=== PATIENT | female | born 1940 | race Caucasian/White ===

== ENCOUNTER 2016-07-13 02:45 | Emergency (ER) | payer MEDICARE ==
[2016-07-13 03:14] VITALS: BP 157/79
[2016-07-13] MEDS ORDERED: CEPHALEXIN 500 MG CAPSULE PO ONE (03:25)
--- NOTE | 2016-07-13 03:28 | ER Document Report ---
HPI - HPI Patient complains to provider of: finger pain Onset: Other - 4 days Onset/Duration: Sudden Quality of pain: Achy Severity: Moderate Pain Level: 3 Context: Patient presents emergency department with complaints of left middle finger pain. Patient reports 4 days ago she had a superficial cut. She does not remember what she cut herself on. Recently she picked at it with a needle. Tonight she woke up hurting. She has not taken anything for the pain. She denies other symptoms such as fever vomiting diarrhea. Associated Symptoms: None Exacerbated by: Denies Relieved by: Denies Similar symptoms previously: No Recently seen / treated by doctor: No - REPRODUCTIVE LMP: na - DERM Skin Color: Normal Past Medical History - General Information source: Patient - Social History Smoking Status: Unknown if Ever Smoked Cigarette use (# per day): No Frequency of alcohol use: None Drug Abuse: None Lives with: Spouse/Significant other Family History: None Patient has suicidal ideation: No Patient has homicidal ideation: No - Past Medical History Cardiac Medical History: Reports: Hx Hypertension Renal/ Medical History: Denies: Hx Peritoneal Dialysis Past Surgical History: Reports: Hx Hysterectomy Vertical Provider Document - CONSTITUTIONAL Agree With Documented VS: Yes Exam Limitations: No Limitations General Appearance: WD/WN, No Apparent Distress - INFECTION CONTROL TRAVEL OUTSIDE OF THE [place] IN LAST 30 DAYS: No - HEENT HEENT: Atraumatic, Normocephalic - NECK Neck: Normal Inspection, Supple. negative: Lymphadenopathy-Left, Lymphadenopathy-Right - RESPIRATORY Respiratory: Breath Sounds Normal, No Respiratory Distress O2 Sat by Pulse Oximetry: 96 - CARDIOVASCULAR Cardiovascular: Regular Rate - MUSCULOSKELETAL/EXTREMETIES Musculoskeletal/Extremeties: MAEW, FROM, Tender - erythema and slight swelling to left 3rd digit, no induration,no pustule, brisk cap refill, pip palmar area with area pt has picked at with needle, dorsal finger with slight swelling, no pustule - NEURO Level of Consciousness: Awake, Alert, Appropriate Motor/Sensory: No Motor Deficit - DERM Integumentary: Warm, Dry Course - Re-evaluation Re-evalutation: 07/13/16 03:38 Patient instructed to monitor the finger return to the emergency department for increased swelling pain. Patient primary care is [facility]. She was instructed to follow up with primary care provider for recheck. - Vital Signs Vital signs: Temp Pulse Resp BP Pulse Ox 98.5 F 69 18 157/79 H 96 07/13/16 03:10 07/13/16 03:10 07/13/16 03:10 07/13/16 03:10 07/13/16 03:10 Discharge - Discharge Clinical Impression: Finger pain, left Condition: Stable Disposition: HOME, SELF-CARE Instructions: Soap Cleansing ([facility]), Cephalexin ([facility]), Anti-Inflammatory Medication ([facility]) Additional Instructions: *You have been treated for finger pain *Take medication as prescribed *Monitor the site for signs of increasing infection such as increasing pain, redness, swelling, warmth *Keep the finger clean *Take antiinflammatory for pain such as aleve or ibuprofen *Follow up with a primary care provider within 5 days *Return to ED for signs of increasing infection, worsening condition, changes, needs Prescriptions: Cephalexin Monohydrate [Keflex 500 mg Capsule] 500 mg PO QID #20 capsule Forms: Elevated Blood Pressure
== END 2016-07-13 03:54 | disposition home or self-care (01) ==
LOC: ER 02:45
DX: M79.645 Pain in left finger(s) (principal); L53.9 Erythematous condition, unspecified; M79.89 Other specified soft tissue disorders; I10 Essential (primary) hypertension
CPT/HCPCS: 99282; A9270

== ENCOUNTER 2016-08-13 09:46 | Day surgery (SDC) | payer MEDICARE ==
[~2016-08-13 09:46] MED LIST: KETOROLAC TROMETHAMINE 0.45% 4 DROP/0.4 ML DROPERETTE OS PRN; LIDOCAINE 1% INJ-PF (10 MG/ML) 30 ML SDV ONE; MIDAZOLAM 2 MG/2 ML INJ ONE
[2016-08-13] MEDS: CYCLOPENTOLATE 0.2%/PHENYLEPHRINE 1% OPH SOLN 2 ML OS PRN ×3 (10:19→10:36)
[2016-08-13] MEDS: BESIFLOXACIN HCL 0.6% OPH SUSP 5 ML BOTTLE OS PRN ×4 (10:19→11:19)
[2016-08-13] MEDS: TETRACAINE HCL 0.5% OPH SOLN 0.6 ML DROPERETTE OS PRN ×3 (10:19→10:43)
[2016-08-13] MEDS: TROPICAMIDE 1% OPH SOLN 3 ML OS PRN ×3 (10:19→10:36)
[2016-08-13] MEDS: CHONDR SU A NA/HYALUR INTRAOC KIT (SURGICARE) ONE ×2 (11:07)
[2016-08-13] MEDS: EPINEPHRINE INJ/PF 1 MG/1 ML AMPULE ONE ×2 (11:07)
[2016-08-13] MEDS: TOBRAMYCIN SULFATE/DEXAMETH OPH OINTMENT 3.5 GM ONE ×2 (11:19)
== END 2016-08-13 12:01 | disposition home or self-care (01) ==
LOC: SC 09:46
PROVIDERS: ATTEND Ophthalmology
PROC: 08RK3JZ Replacement of Left Lens with Synthetic Substitute, Percutaneous Approach (ICD-10-PCS; principal; 2016-08-13 10:45)
DX: H25.12 Age-related nuclear cataract, left eye (principal); I10 Essential (primary) hypertension; K21.9 Gastro-esophageal reflux disease without esophagitis; Z79.899 Other long term (current) drug therapy; Z79.82 Long term (current) use of aspirin; Z87.891 Personal history of nicotine dependence; Z88.5 Allergy status to narcotic agent
CPT/HCPCS: 66984; V2787; J2250; J3490 ×3; A9270; J0171; 142

== ENCOUNTER 2016-08-27 08:02 | Day surgery (SDC) | payer MEDICARE ==
[~2016-08-27 08:02] MED LIST changes: +CHONDR SU A NA/HYALUR INTRAOC KIT (SURGICARE) ONE; +EPINEPHRINE INJ/PF 1 MG/1 ML AMPULE ONE; +KETOROLAC TROMETHAMINE 0.45% 4 DROP/0.4 ML DROPERETTE OD PRN; -KETOROLAC TROMETHAMINE 0.45% 4 DROP/0.4 ML DROPERETTE OS PRN; -MIDAZOLAM 2 MG/2 ML INJ ONE; +TOBRAMYCIN SULFATE/DEXAMETH OPH OINTMENT 3.5 GM ONE
[2016-08-27] MEDS: CYCLOPENTOLATE 0.2%/PHENYLEPHRINE 1% OPH SOLN 2 ML OD PRN ×3 (08:21→08:48)
[2016-08-27] MEDS: TROPICAMIDE 1% OPH SOLN 3 ML OD PRN ×3 (08:22→08:49)
[2016-08-27] MEDS: BESIFLOXACIN HCL 0.6% OPH SUSP 5 ML BOTTLE OD PRN ×2 (08:23→08:37)
[2016-08-27] MEDS: TETRACAINE HCL 0.5% OPH SOLN 0.6 ML DROPERETTE OD PRN ×3 (08:25→08:56)
[2016-08-27] MEDS ORDERED: MIDAZOLAM 2 MG/2 ML INJ ONE (08:40)
== END 2016-08-27 09:57 | disposition home or self-care (01) ==
LOC: SC 08:02
PROVIDERS: ATTEND Ophthalmology
DX: H25.11 Age-related nuclear cataract, right eye (principal); Z53.9 Procedure and treatment not carried out, unspecified reason; Z96.1 Presence of intraocular lens; I10 Essential (primary) hypertension; K21.9 Gastro-esophageal reflux disease without esophagitis; Z79.82 Long term (current) use of aspirin; Z87.891 Personal history of nicotine dependence
CPT/HCPCS: J2250; J3490 ×3; A9270; J0171

== ENCOUNTER 2016-09-03 10:28 | Day surgery (SDC) | payer MEDICARE ==
[2016-09-03] MEDS: CYCLOPENTOLATE 0.2%/PHENYLEPHRINE 1% OPH SOLN 2 ML OD PRN ×3 (10:52→11:12)
[2016-09-03] MEDS: BESIFLOXACIN HCL 0.6% OPH SUSP 5 ML BOTTLE OD PRN ×3 (10:52→11:48)
[2016-09-03] MEDS: TROPICAMIDE 1% OPH SOLN 3 ML OD PRN ×3 (10:52→11:12)
[2016-09-03] MEDS: TETRACAINE HCL 0.5% OPH SOLN 0.6 ML DROPERETTE OD PRN ×3 (10:53→11:25)
[2016-09-03] MEDS ORDERED: MIDAZOLAM 2 MG/2 ML INJ ONE (11:19)
[2016-09-03] MEDS ORDERED: FENTANYL CITRATE INJ/PF 100 MCG/2 ML AMPUL ONE (11:19)
== END 2016-09-03 12:36 | disposition home or self-care (01) ==
LOC: SC 10:28
PROVIDERS: ATTEND Ophthalmology
PROC: 08RJ3JZ Replacement of Right Lens with Synthetic Substitute, Percutaneous Approach (ICD-10-PCS; principal; 2016-09-03 11:30)
DX: H25.11 Age-related nuclear cataract, right eye (principal); Z96.1 Presence of intraocular lens; I10 Essential (primary) hypertension; K21.9 Gastro-esophageal reflux disease without esophagitis; Z79.82 Long term (current) use of aspirin; Z79.899 Other long term (current) drug therapy; Z87.891 Personal history of nicotine dependence; Z88.5 Allergy status to narcotic agent
CPT/HCPCS: 66984; V2787; J2250; J3490 ×3; A9270; J0171; J3010; 142

== ENCOUNTER 2017-02-20 08:34 | Day surgery (SDC) | payer MEDICARE ==
[2017-02-20] MEDS ORDERED: PROMETHAZINE HCL INJ 25 MG/1 ML VIAL IV PRN (11:14)
[2017-02-20] MEDS ORDERED: FENTANYL CITRATE INJ/PF 100 MCG/2 ML AMPUL IV PRN (11:14)
[2017-02-20] MEDS ORDERED: PROPOFOL INJ 200 MG/20 ML VIAL IV ONE (11:46)
--- NOTE | 2017-02-20 12:34 | Operative Report ---
Operative Report DATE OF SURGERY: 02/20/17 Operative Report: The risks, benefits and alternatives of the procedure including risks of bleeding, perforation requiring surgery are explained to the patient in detail and informed consent is obtained. Patient is taken back to the operating room and placed in the left, lateral decubital position. A timeout was called. Propofol medications administered. A rectal examination was done which did not reveal any masses, tears or fissures. An Olympus videoscope was inserted into the patient's rectum. The scope was then carefully advanced all the way to the cecum. The cecum was identified by the usual anatomical landmarks including the ileocecal valve as well as appendiceal office. Photodocumentation is obtained. Prep is good. The scope was then sequentially pulled back via the various segments of the colon including the ascending colon, hepatic flexure, transverse colon, splenic flexure, descending colon finding to the rectosigmoid portions of the colon. Retroflexion maneuvers performed. PREOPERATIVE DIAGNOSIS: Blood in stool. POSTOPERATIVE DIAGNOSIS: Ascending colon polypremoved via snare polypectomy. Random right-sided colon biopsies rule out lymphocytic, microscopic, collagenous colitis. Diverticulosis. Internal hemorrhoids OPERATION: Colonoscopy with snare polypectomy. Colonoscopy with biopsy SURGEON: DEBRA SHRESTHA ANESTHESIA: LMAC TISSUE REMOVED OR ALTERED: As noted above. COMPLICATIONS: None. ESTIMATED BLOOD LOSS: None. INTRAOPERATIVE FINDINGS: As noted above. PROCEDURE: Patient tolerated procedure well. No immediate postprocedure complications are noted. Patient discharged in good condition. Discharge date 02/20/2017. Discharge diet: Regular. Discharge activity: Regular. 2-3 week follow-up to discuss findings. Patient is instructed to call the office or proceed to the emergency room should there be any further problems or questions. We will await pathology. 3-5 year surveillance colonoscopy.
[2017-02-20 14:51] VITALS: BP 144/77
== END 2017-02-20 14:15 | disposition home or self-care (01) ==
LOC: END 08:34
PROVIDERS: ATTEND Internal Medicine Gastroenterology
PROC: 0DBK8ZX Excision of Ascending Colon, Via Natural or Artificial Opening Endoscopic, Diagnostic (ICD-10-PCS; principal; 2017-02-20 10:30)
PROC: 0DBE8ZX Excision of Large Intestine, Via Natural or Artificial Opening Endoscopic, Diagnostic (ICD-10-PCS; 2017-02-20 10:30)
DX: D12.2 Benign neoplasm of ascending colon (principal); K52.9 Noninfective gastroenteritis and colitis, unspecified; K57.30 Diverticulosis of large intestine without perforation or abscess without bleeding; K64.8 Other hemorrhoids; K92.1 Melena; I10 Essential (primary) hypertension; R00.1 Bradycardia, unspecified; K21.9 Gastro-esophageal reflux disease without esophagitis; Z79.899 Other long term (current) drug therapy; Z79.82 Long term (current) use of aspirin; Z88.5 Allergy status to narcotic agent
CPT/HCPCS: 45380; 45385; 88305 ×2; J2704; 810

== ENCOUNTER 2017-09-17 12:24 | Day surgery (SDC) | payer MEDICARE, OTHER ==
[2017-09-17] MEDS ORDERED: NALOXONE HCL INJ/PF 0.4 MG/1 ML SDV ONE (12:58)
[2017-09-17] MEDS ORDERED: ONDANSETRON HCL INJ/PF 4 MG/2 ML SDV ONE (12:58)
[2017-09-17] MEDS ORDERED: MIDAZOLAM 2 MG/2 ML INJ ONE (12:58)
[2017-09-17] MEDS ORDERED: DIPHENHYDRAMINE HCL 50 MG/ML VIAL ONE (12:58)
[2017-09-17] MEDS ORDERED: FLUMAZENIL INJ 0.5 MG/5 ML VIAL ONE (12:59)
[2017-09-17] MEDS ORDERED: GLUCAGON,HUMAN RECOMB 1 MG INJ ONE (12:59)
[2017-09-17] MEDS ORDERED: EPINEPHRINE INJ 1 MG/10 ML DISP.SYRIN ONE (12:59)
[2017-09-17] MEDS: FENTANYL CITRATE INJ/PF 100 MCG/2 ML AMPUL ONE ×2 (13:11→13:15)
--- NOTE | 2017-09-17 13:24 | Operative Report ---
Operative Report DATE OF SURGERY: 09/17/17 Operative Report: The risks benefits and alternatives of the procedure explained to the patient in detail and informed consent is obtained.A GIF Olympus video scope was inserted into the patient's mouth and hypopharynx, the esophagus is identified intubated and insufflated, the scope was then advanced through the esophagus stomach and duodenum, retroflexion maneuver is done ,the esophagus stomach and first and second portions of the duodenum examined PREOPERATIVE DIAGNOSIS: Epigastric pain, gastroesophageal reflux disease POSTOPERATIVE DIAGNOSIS: Mid esophageal lesion that is more consistent with Power's status post biopsy. Gastritis status post biopsy rule out Helicobacter pylori OPERATION: EGD with biopsy SURGEON: DEBRA SHRESTHA ANESTHESIA: Moderate Sedation - 2 mg of Versed, 75 mcg of fentanyl. Conscious sedation monitoring time 30 minutes. TISSUE REMOVED OR ALTERED: As noted above. COMPLICATIONS: None. ESTIMATED BLOOD LOSS: None. INTRAOPERATIVE FINDINGS: As noted above. PROCEDURE: Patient tolerated the procedure well. No immediate postprocedure complications are noted. Patient discharged in good condition. Discharge date 09/17/2017. Discharge diet: Regular. Discharge activity: Regular. 2-3 week follow-up to discuss findings. Patient is instructed call the office or proceed to the emergency room should there be any further problems or questions. We will be on the pathology. If biopsies are positive may need ablation but will speak to the patient before that.
[2017-09-17 14:22] VITALS: BP 126/67
== END 2017-09-17 14:20 | disposition home or self-care (01) ==
LOC: END 12:24
PROVIDERS: ATTEND Internal Medicine Gastroenterology
DX: K21.0 Gastro-esophageal reflux disease with esophagitis (principal); K29.50 Unspecified chronic gastritis without bleeding; I10 Essential (primary) hypertension; Z79.899 Other long term (current) drug therapy; Z88.5 Allergy status to narcotic agent
CPT/HCPCS: 43239; 88305 ×2; J2250; J3010; J0171; J1200; J1610; J2310; J2405; J3490

== ENCOUNTER 2017-09-29 11:50 | Day surgery (SDC) | payer MEDICARE, OTHER ==
[2017-09-29] MEDS ORDERED: DIPHENHYDRAMINE HCL 50 MG/ML VIAL ONE (12:20)
[2017-09-29] MEDS ORDERED: ONDANSETRON HCL INJ/PF 4 MG/2 ML SDV ONE (12:20)
[2017-09-29] MEDS ORDERED: NALOXONE HCL INJ/PF 0.4 MG/1 ML SDV ONE (12:20)
[2017-09-29] MEDS ORDERED: GLUCAGON,HUMAN RECOMB 1 MG INJ ONE (12:21)
[2017-09-29] MEDS ORDERED: EPINEPHRINE INJ 1 MG/10 ML DISP.SYRIN ONE (12:21)
[2017-09-29] MEDS ORDERED: FLUMAZENIL INJ 0.5 MG/5 ML VIAL ONE (12:21)
[2017-09-29] MEDS: MIDAZOLAM 2 MG/2 ML INJ ONE ×2 (12:42→12:46)
[2017-09-29] MEDS: FENTANYL CITRATE INJ/PF 100 MCG/2 ML AMPUL ONE ×2 (12:44→12:48)
--- NOTE | 2017-09-29 13:01 | Operative Report ---
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 Conscious sedation monitoring time 30 minutes. TISSUE REMOVED OR ALTERED: None. COMPLICATIONS: None. ESTIMATED BLOOD LOSS: None. INTRAOPERATIVE FINDINGS: As noted above. PROCEDURE: Patient tolerated the procedure well. No immediate postprocedure complications are noted. Patient discharged in good condition. Discharge date 09/29/2017. Discharge diet: Regular. Discharge activity: Regular. 2-3 week follow-up to discuss findings. Patient is instructed to call the office or proceed to the emergency room should there be any further problems or questions.
[2017-09-29 13:54] VITALS: BP 117/68
== END 2017-09-29 14:20 | disposition home or self-care (01) ==
LOC: END 11:50
PROVIDERS: ATTEND Internal Medicine Gastroenterology
DX: K22.719 Barrett's esophagus with dysplasia, unspecified (principal); I10 Essential (primary) hypertension; K21.9 Gastro-esophageal reflux disease without esophagitis; R00.1 Bradycardia, unspecified; F41.9 Anxiety disorder, unspecified; Z13.89 Encounter for screening for other disorder; Z88.5 Allergy status to narcotic agent; Z79.899 Other long term (current) drug therapy; Z79.82 Long term (current) use of aspirin
CPT/HCPCS: 43270; J2250; J3010; J0171; J1200; J1610; J2310; J2405; J3490

== ENCOUNTER 2018-12-01 08:05 | Day surgery (SDC) | payer MEDICARE, OTHER ==
[~2018-12-01 08:05] MED LIST changes: -CHONDR SU A NA/HYALUR INTRAOC KIT (SURGICARE) ONE; +DIPHENHYDRAMINE HCL 50 MG/ML VIAL ONE; +EPINEPHRINE INJ 1 MG/10 ML DISP.SYRIN ONE; -EPINEPHRINE INJ/PF 1 MG/1 ML AMPULE ONE; +FLUMAZENIL INJ 0.5 MG/5 ML VIAL ONE; +GLUCAGON,HUMAN RECOMB 1 MG INJ ONE; -KETOROLAC TROMETHAMINE 0.45% 4 DROP/0.4 ML DROPERETTE OD PRN; -LIDOCAINE 1% INJ-PF (10 MG/ML) 30 ML SDV ONE; +NALOXONE HCL INJ/PF 0.4 MG/1 ML SDV ONE; +ONDANSETRON HCL INJ/PF 4 MG/2 ML SDV ONE; -TOBRAMYCIN SULFATE/DEXAMETH OPH OINTMENT 3.5 GM ONE
[2018-12-01] MEDS: MIDAZOLAM 2 MG/2 ML INJ ONE ×3 (08:25→08:30)
[2018-12-01] MEDS: FENTANYL CITRATE INJ/PF 100 MCG/2 ML AMPUL ONE ×2 (08:27→08:28)
--- NOTE | 2018-12-01 08:42 | Operative Report ---
Operative Report DATE OF SURGERY: 12/01/18 Operative Report: The risks benefits and alternatives of the procedure explained to the patient in detail and informed consent is obtained.A GIF Olympus video scope was inserted into the patient's mouth and hypopharynx, the esophagus is identified intubated and insufflated, the scope was then advanced through the esophagus stomach and duodenum, retroflexion maneuver is done, the esophagus stomach and first and second portions of the duodenum examined. PREOPERATIVE DIAGNOSIS: History of Power's esophagus, gastroesophageal reflux disease POSTOPERATIVE DIAGNOSIS: Power's esophagus status post radiofrequency ablation. Hiatal hernia. Gastritis status post biopsy without Helicobacter pylori OPERATION: EGD with biopsy. EGD with radiofrequency ablation SURGEON: DEBRA SHRESTHA ANESTHESIA: Moderate Sedation - 4 mg of Versed, 50 mcg of fentanyl. Conscious sedation monitoring time 30 minutes. TISSUE REMOVED OR ALTERED: As noted above. COMPLICATIONS: None. ESTIMATED BLOOD LOSS: None. INTRAOPERATIVE FINDINGS: As noted above. PROCEDURE: Patient tolerated the procedure well. No immediate postprocedure complications are noted. Patient is discharged in good condition. Discharge date 12/01/2018. Discharge diet: Regular. Discharge activity: Regular. 2 to 3-week follow-up to discuss findings. Patient is instructed to call the office or proceed to the emergency room should there be any further problems or questions. Wait on the pathology.
[2018-12-01 09:44] VITALS: BP 116/60
== END 2018-12-01 09:45 | disposition home or self-care (01) ==
LOC: END 08:05
PROVIDERS: ATTEND Internal Medicine Gastroenterology
DX: K21.9 Gastro-esophageal reflux disease without esophagitis (principal); K44.9 Diaphragmatic hernia without obstruction or gangrene; K29.50 Unspecified chronic gastritis without bleeding; K22.70 Barrett's esophagus without dysplasia; I10 Essential (primary) hypertension; R00.1 Bradycardia, unspecified; Z79.82 Long term (current) use of aspirin
CPT/HCPCS: 43270; 43239; 88305 ×2; J2250; J3010; J0171; J1200; J1610; J2310; J2405; J3490

== ENCOUNTER 2019-07-03 05:35 | Emergency (ER) | payer MEDICARE, OTHER ==
[2019-07-03] MEDS ORDERED: NORMAL SALINE 250 ML IV ONE (06:33)
--- NOTE | 2019-07-03 07:27 | RADIOLOGY REPORT (SQ) ---
EXAM: XR Abdomen, 1 View EXAM DATE/TIME: 07/03/2019 7:11 AM CLINICAL HISTORY: The patient is 79 years old and is Female; abdominal pain ruq TECHNIQUE: Frontal supine view of the abdomen/pelvis. COMPARISON: No relevant prior studies available. FINDINGS: GASTROINTESTINAL TRACT: Moderate amount of stool in the colon. No obvious bowel obstruction. BONES/JOINTS: Degenerative changes of the lower lumbar spine. SOFT TISSUES: Unremarkable as visualized. IMPRESSION: No acute findings.
[2019-07-03 07:57] LABS: ABSOLUTE LYMPHOCYTES (AUTO) 0.6 10^3/uL (0.5-4.7); ABSOLUTE MONOCYTES (AUTO) 0.6 10^3/uL (0.1-1.4); ABSOLUTE NEUT (AUTO) 6.9 10^3/uL (1.7-8.2); BASOPHILS % (AUTO) 0.5 % (0-2); EOSINOPHILS % (AUTO) 0.5 % (0-6); HEMOGLOBIN 14.8 g/dL (12.0-15.5); LYMPHOCYTES % (AUTO) 7.2 % (13-45); MEAN CORPUSCULAR HEMOGLOBIN 30.6 pg (27.0-33.4); MEAN CORPUSCULAR HGB CONC 35.1 g/dL (32.0-36.0); MEAN CORPUSCULAR VOLUME 87 fl (80-97); PLATELET COUNT 178 10^3/uL (150-450); RED BLOOD COUNT 4.82 10^6/uL (3.72-5.28); RED CELL DISTRIBUTION WIDTH 13.1 % (11.5-14.0); SEGMENTED NEUTROPHILS % (AUTO) 84.8 % (42-78); TOTAL CELLS COUNTED % (AUTO) 100 %; WHITE BLOOD COUNT 8.1 10^3/uL (4.0-10.5)
[2019-07-03 08:16] LABS: ALBUMIN 4.1 g/dL (3.5-5.0); ALKALINE PHOSPHATASE 64 U/L (38-126); ASPARTATE AMINO TRANSFERASE 35 U/L (14-36); BILIRUBIN,TOTAL 1.3 mg/dL (0.2-1.3); BLOOD UREA NITROGEN 18 mg/dL (7-20); GLUCOSE 99 mg/dL (75-110); POTASSIUM 4.6 mmol/L (3.6-5.0); TOTAL PROTEIN 6.9 g/dL (6.3-8.2)
[2019-07-03 08:27] LABS: CARBON DIOXIDE 31 mmol/L (22-30); CHLORIDE 102 mmol/L (98-107)
[2019-07-03 08:30] LABS: ANION GAP 6 (5-19)
--- NOTE | 2019-07-03 08:54 | EKG REPORT ---
SEVERITY:- ABNORMAL ECG - SINUS RHYTHM LEFT AXIS DEVIATION NONSPECIFIC ST-T CHANGES LATERAL LEADS : Confirmed by: Philip Cardozo MD 03-Jul-2019 08:53:51
[2019-07-03 09:04] LABS: APPEARANCE,URINE CLEAR; BILIRUBIN,URINE NEGATIVE (NEGATIVE); COLOR,URINE YELLOW; GLUCOSE, URINE NEGATIVE (NEGATIVE); KETONES,URINE NEGATIVE (NEGATIVE); LEUKOCYTE ESTERASE,URINE NEGATIVE (NEGATIVE); NITRITE,URINE NEGATIVE (NEGATIVE); PROTEIN,URINE NEGATIVE (NEGATIVE); URINE SPECIFIC GRAVITY 1.008; UROBILINOGEN,URINE NEGATIVE mg/dL (<2.0)
--- NOTE | 2019-07-03 09:34 | ER Document Report ---
Entered by PO GALINDO SCRIBE 07/03/19 0630 Acting as scribe for:SRIKANTH GONZALEZ MD ED General - General Chief Complaint: Abdominal Pain Stated Complaint: ABDOMINAL PAIN Time Seen by Provider: 07/03/19 06:13 Primary Care Provider: INOCENTE ANTUNEZ MD [Primary Care Provider] - Follow up as needed Information source: Patient Notes: This 79-year-old female presents to the emergency department via EMS complaining of RUQ abdominal pain that began about 4 hours ago. Patient describes that when she went to sleep, she felt normal. Patient was awoken at 2AM stating that she "felt gas in her stomach". Patient said that this is a normal symptom for her but after awhile a pain began in her RUQ that she described as dull and aching. Patient said that she had a bowel movement with no relief of symptoms. Patient stated that the pain was worsening with associated diaphoresis and a feeling of passing out. Patient stated that she got nervous and when she pressed on her RUQ it felt sore. Patient called EMS and said that when she was picked up by EMS, she vomited once. Patient has had no sick contact. Patient states that she has never felt this pain before but she feels better now. Patient denies mouth swelling, trouble swallowing, chest pain and wheezing. TRAVEL OUTSIDE OF THE [place] IN LAST 30 DAYS: No - Related Data Allergies/Adverse Reactions: codeine Adverse Reaction (Verified 12/01/18 08:03) shakey, nervous diphenhydramine [From Benadryl] Adverse Reaction (Verified 12/01/18 08:03) Hyperactive, shakey, nervous oxycodone [From Percocet] Adverse Reaction (Verified 12/01/18 08:03) hallucination Home Medications: Amlodipine, Vitamin C, Omeprazole, Estratest Past Medical History - General Information source: Patient - Social History Smoking Status: Former Smoker Cigarette use (# per day): No Chew tobacco use (# tins/day): No Lives with: Parents Family History: None Patient has suicidal ideation: No Patient has homicidal ideation: No - Past Medical History Cardiac Medical History: Reports: Hx Hypertension GI Medical History: Reports: Hx Gastroesophageal Reflux Disease, Hx Hiatal Hernia Musculoskeletal Medical History: Reports Hx Arthritis Psychiatric Medical History: Reports: Hx Anxiety Past Surgical History: Reports: Hx Section, Hx Hysterectomy - Immunizations Hx Diphtheria, Pertussis, Tetanus Vaccination: Yes Hx Pneumococcal Vaccination: 02/04/17 Review of Systems - Review of Systems Constitutional: See HPI, Diaphoresis EENT: See HPI. denies: Difficulty swallowing, Mouth swelling Cardiovascular: See HPI. denies: Chest pain Respiratory: See HPI. denies: Wheezing Gastrointestinal: See HPI, Abdominal pain, Vomiting, Last bowel movement Genitourinary: No symptoms reported Female Genitourinary: No symptoms reported Musculoskeletal: No symptoms reported Skin: No symptoms reported Hematologic/Lymphatic: No symptoms reported Neurological/Psychological: No symptoms reported -: Yes All other systems reviewed and negative Physical Exam - Vital signs Vitals: Temp Pulse Resp BP Pulse Ox 97.4 F 64 14 128/62 H 94 07/03/19 05:50 07/03/19 05:50 07/03/19 05:50 07/03/19 05:50 07/03/19 05:50 - Notes Notes: Physical Exam: General: Alert, appears well. HEENT: Normocephalic. Atraumatic. PERRL. Extraocular movements intact. Oropharynx clear. TMs are clear and non-bulging, bilaterally. Neck: Supple. Non-tender. Respiratory: No respiratory distress. Clear and equal breath sounds bilaterally. Cardiovascular: Regular rate and rhythm. Abdominal: Non-tender. No distension. Hyperactive Bowel Sounds. Back: No gross abnormalities. Extremities: Moves all four extremities. Upper extremities: Normal inspection. Normal ROM. Lower extremities: Normal inspection. No edema. Normal ROM. Neurological: Normal cognition. AAOx4. Normal speech. Psychological: Normal affect. Normal Mood. Skin: Warm. Dry. Normal color. Course - Re-evaluation Re-evalutation: 07/03/19 09:30 Patient resting comfortably. Patient reports again that she has not had any pain since she has been in the emergency department. Her pain improved once EMS arrived to her residence and have given her Zofran and Benadryl prior to arrival to the ED. - Vital Signs Vital signs: Temp Pulse Resp BP Pulse Ox 97.4 F 64 14 128/62 H 94 07/03/19 05:50 07/03/19 05:50 07/03/19 05:50 07/03/19 05:50 07/03/19 05:50 - Laboratory Result Diagrams: 07/03/19 07:25 07/03/19 07:25 Laboratory results interpreted by me: 07/03/19 07/03/19 07:25 07:25 Lymph % (Auto) 7.2 L Seg Neutrophils % 84.8 H Carbon Dioxide 31 H Patient has a carbon dioxide of 31 and 84% segs. With a normal white count. Patient does not appear to have any infectious disease going on at this time. And patient has been given a bolus of 250 milliliters of normal saline. - Diagnostic Test Radiology reviewed: Image reviewed, Reports reviewed Radiology results interpreted by me: 07/03/19 07:50 Abdominal KUB single view radiology report shows moderate amount of stool no obstruction noted. Degenerative changes in the lumbar spine otherwise negative. - EKG Interpretation by Me Additional EKG results interpreted by me: 07/03/19 06:52 Twelve-lead EKG done 07/03/2019 at 648 shows sinus bradycardia rate of 59 left axis deviation. No other acute ST-T wave changes. Discharge - Discharge Clinical Impression: Constipation by delayed colonic transit Condition: Stable Disposition: HOME, SELF-CARE Instructions: Abdominal Pain ([facility]) Additional Instructions: Constipation Constipation is a common problem. It is especially likely as you get older. Constipation is a common cause of abdominal pain, but sometimes causes no symptoms at all. Causes of constipation include certain medications, dehydration, diets, inactivity, and low-fiber intake. Rarely, it can be a symptom of underlying disease. The physician has evaluated you for this. Avoid constipation by eating a diet high in fiber, fruits, and vegetables. Drink plenty of liquids. Get regular exercise. If possible, avoid constipating medicines like narcotic pain medication. Some vitamin tablets can cause constipation. Stool softeners may be needed for difficult cases. An excellent stool softener is Konsyl which is available at [employer], and [employer]. Just add a teaspoon to a glass of pineapple or orange juice daily or twice a day if needed. Laxatives are useful for occasional constipation. You should use them only when necessary. Too-frequent use can make your bowels dependent on them. Some over the counter laxatives available without prescription are: Milk of Magnesia, 1-2 tablespoons twice a day Dulcolax, 5 mg pill or 10 mg suppository. Citrate of Magnesia, 4-5 ounces a day for a day or two For acute constipation, Fleet's Enemas and Dulcolax suppositories are helpful. Chronic, retirement use of laxatives or enemas is not a good idea. Your bowel may become dependant on them. You do not need to have a bowel movement every day. Many people do fine with a bowel movement every three or four days. You should call your doctor or return for re-evaluation if you pass blood in the stool, or if you develop fever or increasing abdominal pain. Prescriptions: Magnesium Citrate [Citrate of Magnesia 296 ml Bottle] 296 ml PO DAILY #1 bottle Referrals: INOCENTE ANTUNEZ MD [Primary Care Provider] - Follow up as needed I personally performed the services described in the documentation, reviewed and edited the documentation which was dictated to the scribe in my presence, and it accurately records my words and actions.
[2019-07-03 09:43] VITALS: BP 124/66
== END 2019-07-03 10:57 | disposition home or self-care (01) ==
LOC: ER 05:35
DX: K59.01 Slow transit constipation (principal); R10.11 Right upper quadrant pain; R61 Generalized hyperhidrosis; R11.10 Vomiting, unspecified; R00.1 Bradycardia, unspecified; I10 Essential (primary) hypertension; K21.9 Gastro-esophageal reflux disease without esophagitis; Z79.899 Other long term (current) drug therapy
CPT/HCPCS: 93005; 99284; 36415; 83605; 83690; 85025; 80053; 81001; 84484; 74018; 93010; J7050

== ENCOUNTER 2020-02-01 08:05 | Day surgery (SDC) | payer MEDICARE, OTHER ==
[~2020-02-01 08:05] MED LIST changes: -DIPHENHYDRAMINE HCL 50 MG/ML VIAL ONE; -EPINEPHRINE INJ 1 MG/10 ML DISP.SYRIN ONE; -FLUMAZENIL INJ 0.5 MG/5 ML VIAL ONE; -GLUCAGON,HUMAN RECOMB 1 MG INJ ONE; -NALOXONE HCL INJ/PF 0.4 MG/1 ML SDV ONE; -ONDANSETRON HCL INJ/PF 4 MG/2 ML SDV ONE; +PROPOFOL INJ 200 MG/20 ML VIAL IV ONE
[2020-02-01 11:32] VITALS: BP 142/73
--- NOTE | 2020-02-01 11:56 | Operative Report ---
Operative Report DATE OF SURGERY: 02/01/20 Operative Report: The risk, benefits and alternatives of the procedure including the risks of bleeding, perforation requiring surgery have been explained to the patient in detail and informed consent has been obtained. Patient is placed in left lateral decubital position. Timeout was called. Propofol medication is administered. Rectal examination is done which did not reveal any masses, tears or fissures. An Olympus videoscope was introduced into the patient's rectum. Scope was then carefully advanced all the way to the cecum. Cecum was identified by the usual anatomical landmarks including the ileocecal valve as well as the appendiceal office. Photodocumentation is obtained. Scope was then sequentially pulled back via the various segments of the colon including the ascending colon, hepatic flexure, transverse colon, splenic flexure, descending colon finding to the rectosigmoid portions of the colon. Retroflexion maneuver is performed. PREOPERATIVE DIAGNOSIS: Change of bowel habits. Family history of colorectal cancer POSTOPERATIVE DIAGNOSIS: Moderate sigmoid diverticulosis. Internal hemorrhoids. Mild inflammation noted on the right-hand side of the colon status post biopsy OPERATION: Colonoscopy with biopsy SURGEON: DEBRA SHRESTHA ANESTHESIA: LMAC TISSUE REMOVED OR ALTERED: As noted above. COMPLICATIONS: None. ESTIMATED BLOOD LOSS: None. INTRAOPERATIVE FINDINGS: As noted above. PROCEDURE: Patient tolerated the procedure well. No immediate postprocedure complications are noted. Patient is discharged in good condition. Discharge date 02/01/2020. Discharge diet: Regular. Discharge activity: Regular. 2 to 3-week follow-up to discuss findings. 5-year surveillance colonoscopy due to the family history of colorectal cancer Wait on the pathology. No evidence of diverticulitis.
== END 2020-02-01 11:45 | disposition home or self-care (01) ==
LOC: END 08:05
PROVIDERS: ATTEND Internal Medicine Gastroenterology
DX: K57.30 Diverticulosis of large intestine without perforation or abscess without bleeding (principal); K63.89 Other specified diseases of intestine; K52.9 Noninfective gastroenteritis and colitis, unspecified; K64.8 Other hemorrhoids; K21.9 Gastro-esophageal reflux disease without esophagitis; Z80.0 Family history of malignant neoplasm of digestive organs; I10 Essential (primary) hypertension; D64.9 Anemia, unspecified; R19.4 Change in bowel habit; M48.00 Spinal stenosis, site unspecified; R51.9 Headache, unspecified; R63.4 Abnormal weight loss; Z87.891 Personal history of nicotine dependence; Z79.899 Other long term (current) drug therapy; Z68.23 Body mass index [BMI] 23.0-23.9, adult; Z88.6 Allergy status to analgesic agent; Z88.8 Allergy status to other drugs, medicaments and biological substances; Z03.818 Encounter for observation for suspected exposure to other biological agents ruled out
CPT/HCPCS: 45380; 88305 ×2; U0003; J2704; C9803; 811; 87635